=== PATIENT | female | born 1985 | race American Indian/Alaskan Native ===

== ENCOUNTER 2019-03-30 18:23 | Emergency (ER) | payer BC, OTHER ==
--- NOTE | 2019-03-30 19:17 | EDM.PDOC ---
ED HPI GENERAL MEDICAL PROBLEM - General Chief Complaint: Lower Extremity Injury/Pain Stated Complaint: INJURED FOOT Time Seen by Provider: 03/30/19 18:45 Source of Information: Reports: Patient History Limitations: Reports: No Limitations - History of Present Illness INITIAL COMMENTS - FREE TEXT/NARRATIVE: 33 YO WF presents to ER with left foot pain after injuring it at work today. Pt reports she was wearing soft toe shoes and was moving a patient when she felt pain in the forefoot. Pt denies any direct injury. Pt reports pain with ambulation but if she walks on her heel she has minimal pain. Pt denies any other injuries. Pt denies swelling or redness to foot. Onset: Today Onset Date: 03/30/19 Onset Time: 14:00 Location: Reports: Upper Extremity, Left Quality: Reports: Ache Severity: Mild Improves with: Reports: Rest Worsens with: Reports: Movement Associated Symptoms: Reports: No Other Symptoms Left Foot Pain Score (Numeric/FACES): 8 - Related Data Allergies Allergy/AdvReac Type Severity Reaction Status Date / Time No Known Drug Allergies Allergy Cannot Verified 03/30/19 18:32 Remember Home Meds: Home Meds . [No Known Home Meds] 03/30/19 [History] Past Medical History - Past Health History Medical/Surgical History: Denies Medical/Surgical History Social & Family History - Tobacco Use Smoking Status *Q: Current Every Day Smoker Years of Tobacco use: 15 Packs/Tins Daily: 0.5 - Caffeine Use Caffeine Use: Reports: Coffee - Recreational Drug Use Recreational Drug Use: No Review of Systems - Review of Systems Review Of Systems: See Below Constitutional: Reports: No Symptoms Eyes: Reports: No Symptoms Ears: Reports: No Symptoms Nose: Reports: No Symptoms Mouth/Throat: Reports: No Symptoms Respiratory: Reports: No Symptoms Cardiovascular: Reports: No Symptoms GI/Abdominal: Reports: No Symptoms Genitourinary: Reports: No Symptoms Musculoskeletal: Reports: Foot Pain Skin: Reports: No Symptoms Neurological: Reports: No Symptoms Psychiatric: Reports: No Symptoms ED EXAM, GENERAL - Physical Exam Exam: See Below Exam Limited By: No Limitations General Appearance: Alert, WD/WN, No Apparent Distress Nose: Normal Inspection, Normal Mucosa, No Blood Throat/Mouth: Normal Inspection, Normal Lips, Normal Teeth, Normal Gums, Normal Oropharynx, Normal Voice, No Airway Compromise Head: Atraumatic, Normocephalic Neck: Normal Inspection, Supple, Non-Tender, Full Range of Motion Respiratory/Chest: No Respiratory Distress, Lungs Clear, Normal Breath Sounds, No Accessory Muscle Use, Chest Non-Tender Cardiovascular: Normal Peripheral Pulses, Regular Rate, Rhythm, No Edema, No Gallop, No JVD, No Murmur, No Rub GI/Abdominal: Normal Bowel Sounds, Soft, Non-Tender, No Organomegaly, No Distention, No Abnormal Bruit, No Mass Back Exam: Normal Inspection, Full Range of Motion Extremities: Normal Inspection, Normal Range of Motion, No Pedal Edema, Normal Capillary Refill, Other (pain to dorsilateral aspect of foot. ) Neurological: Alert, Oriented, CN II-XII Intact, Normal Cognition, Normal Gait, Normal Reflexes, No Motor/Sensory Deficits Psychiatric: Normal Affect, Normal Mood Skin Exam: Warm, Dry, Intact, Normal Color, No Rash Lymphatic: No Adenopathy Course - Vital Signs Last Recorded V/S: Last Vital Signs Temp 36.4 C 03/30/19 18:34 Pulse 77 03/30/19 18:34 Resp 20 03/30/19 18:34 BP 145/79 H 03/30/19 18:34 Pulse Ox 99 03/30/19 18:34 - Orders/Labs/Meds Orders: Active Orders 24 hr Category Date Time Status Splinting [RC] ASDIRECTED Care 03/30/19 19:20 Active - Radiology Interpretation Free Text/Narrative:: left foot xray- avulsion fracture to cuboid of left foot Departure - Departure Time of Disposition: 19:51 Disposition: Home, Self-Care 01 Condition: Good Clinical Impression: Cuboid fracture Qualifiers: Encounter type: initial encounter Fracture type: closed Fracture alignment: nondisplaced Laterality: left Qualified Code(s): S92.215A - Nondisplaced fracture of cuboid bone of left foot, initial encounter for closed fracture - Discharge Information Instructions: Crutch Use, Adult, [id number], Tarsal Navicular Fracture Referrals: Edy Traore MD [Physician] - Forms: ED Department Discharge, ED Return to Work/School Form Additional Instructions: 1. discharge home 2. rest/ice/elevation/crutches 3. post op shoe 4. follow up wit ortho for further evaluation and treatment- Dr Arellano 5. motrin 600mg every 6 hours as needed for pain 6. return to ER for worsening symptoms Sepsis Event Note - Evaluation Sepsis Screening Result: No Definite Risk - Focused Exam Vital Signs: Vital Signs Temp Pulse Resp BP Pulse Ox 03/30/19 18:34 36.4 C 77 20 145/79 H 99 Date Exam was Performed: 03/30/19 Time Exam was Performed: 19:51 - My Orders Last 24 Hours: My Active Orders 03/30/19 19:20 Splinting [RC] ASDIRECTED - Assessment/Plan Last 24 Hours: My Active Orders 03/30/19 19:20 Splinting [RC] ASDIRECTED Assessment:: 1. cuboid fracture of left foot Plan: 1. discharge home 2. rest/ice/elevation/crutches 3. post op shoe 4. follow up wit ortho for further evaluation and treatment- Dr Arellano 5. motrin 600mg every 6 hours as needed for pain 6. return to ER for worsening symptoms
--- NOTE | 2019-03-30 19:24 | CR ---
[id number] RAD/RAD Foot Left 3V Min Exam: RAD Foot Left 3V Min Indication:LEFT FOOT PAIN Comparison: No prior imaging for comparison. Discussion: Multiple accessory ossicle scattered throughout the foot. No evidence of an acute fracture or dislocation. No AVN or erosive changes. No radiographic evidence of a tarsal coalition. If symptoms persist, MRI is recommended. Impression: No acute findings. Saman Prieto MD 03/30/19 1923 Thank you for allowing us to participate in the care of your patient.
== END 2019-03-30 20:05 | disposition home or self-care (01) ==
LOC: KA.ED 18:23
DX: S92.215A Nondisplaced fracture of cuboid bone of left foot, initial encounter for closed fracture (principal); F17.210 Nicotine dependence, cigarettes, uncomplicated; X58.XXXA Exposure to other specified factors, initial encounter
CPT/HCPCS: 73630-LT; 99283-25